=== PATIENT | male | born 1970 | race Caucasian/White ===

== ENCOUNTER 2024-06-13 07:32 | Emergency (ER) | payer MEDICAID ==
[~2024-06-13] VITALS: Ht 170.2 cm; Wt 60.7 kg
--- NOTE | 2024-06-13 07:53 | ED.PDOC ---
Musculoskeletal HPI Comments A 53 YEAR OLD MALE PRESENTS TO THE ED WITH CHIEF COMPLAINT OF LEFT HIP PAIN. PATIENT REPORTS THAT HE HAD RECENT LEFT HIP SURGERY IN 2023, HOWEVER, HE HAD ACCIDENTALLY FELL YESTERDAY ONTO HIS LEFT SIDE, CAUSING IMMENSE PAIN TO THE LEFT HIP AND LEG. PATIENT RELAYS THAT HIS PAIN OCCURS EVEN WHEN HIS LEG IS SLIGHTLY PALPATED. PATIENT STATES HE IS STILL ABLE TO WALK ON HIS OWN. PATIENT DENIES ANY NUMBNESS, WEAKNESS, HEAD INJURY, BACK INJURY, NECK INJURY, OR LOC. NO OTHER SYMPTOMS REPORTED AT THIS TIME OF CARE. Chief Complaint: Lower Extremity Time Seen by MD: 07:49 Reviewed Notes: Nurses Notes, Medications, Allergies Allergies: Coded Allergies: NO KNOWN ALLERGIES (Unverified , 06/13/24) Home Meds Active Scripts Gabapentin (Gabapentin) 300 Mg Cap, 1 CAP PO BID, #40 CAP Prov:JAVI RAMON 06/13/24 Ibuprofen (Ibuprofen) 800 Mg Tab, 1 TAB PO TID, #30 TAB Prov:JAVI RAMON 06/13/24 Information Source: Patient Mode of Arrival: Ambulatory Location: Left Extremity Location: Hip, Leg Timing: Days Prehospital treatment: None Severity: Moderate Able to Move Extremity: Yes Bear Weight: Fully Pain: Moderate Mechanism: Blunt Trauma Circumstances: Fall Onset of Symptoms: After Trauma Symptoms: Pain DVT Risk Factors: Recent surgery History of: Hip Fracture, Hip Operation Associated signs and symptoms: Hip pain Past Medical History PAST MEDICAL HISTORY: Denies Surgical History (Other): LEFT HIP SURGERY Family History Family History: Reviewed,noncontributory to illness Social History Smoker: Non-Smoker Alcohol: Denies ETOH Use Drugs: Denies Drug Use Lives In: Home Constitutional: denies: chills, diaphoresis, fatigue, fever, malaise, sweats, weakness, others EENTM: denies: blurred vision, double vision, ear bleeding, ear discharge, ear drainage, ear pain, ear ringing, eye pain, eye redness, hearing loss, mouth pain, mouth swelling, nasal discharge, nose bleeding, nose congestion, nose pain, photophobia, tearing, throat pain, throat swelling, voice changes, others Respiratory: denies: cough, hemoptysis, orthopnea, SOB at rest, shortness of breath, SOB with excertion, stridor, wheezing, others Cardiovascular: denies: chest pain, dizzy spells, diaphoresis, Dyspnea on exertion, edema, irregular heart beat, left arm pain, lightheadedness, palpitations, PND, syncope, others Gastrointestinal: denies: abdomen distended, abdominal pain, blood streaked bowels, constipated, diarrhea, dysphagia, difficulty swallowing, hematemesis, melena, nausea, poor appetite, poor fluid intake, rectal bleeding, rectal pain, vomiting, others Genitourinary: denies: burning, dysuria, flank pain, frequency, hematuria, incontinence, penile discharge, penile sore, pain, testicle pain, testicle swelling, urgency, others Neurological: denies: dizziness, fainting, headache, left sided numbness, left sided weakness, numbness, paresthesia, pre-existing deficit, right sided numbness, right sided weakness, seizure, speech problems, tingling, tremors, weakness, others Musculoskeletal: reports: joint pain, muscle pain; denies: back pain, gout, joint swelling, muscle stiffness, neck pain, others Integumetry: denies: bruises, change in color, change in hair/nails, dryness, laceration, lesions, lumps, rash, wounds, others Allergic/Immunocompromised: denies: Difficulty Healing, Frequent Infections, Hives, Itching, others Hematologic/Lymphatic: denies: anemia, blood clots, easy bleeding, easy bruising, swollen glands, others Endocrine: denies: excessive hunger, excessive sweating, excessive thirst, excessive urination, flushing, intolerance to cold, intolerance to heat, unexplained weight gain, unexplained weight loss, others Psychiatric: denies: anxiety, bipolar disorder, depression, hopeless, panic disorder, schizophrenia, sleepless, suicidal, others All Other Systems: Reviewed and Negative Physical Exam General Appearance: No Apparent Distress, Normal HEENT: Normal ENT Inspection, PERRL/EOMI Neck: Full Range of Motion, Non-Tender, Normal, Normal Inspection Respiratory: Chest Non-Tender, Lungs Clear, No Accessory Muscle Use, No Respiratory Distress, Normal Breath Sounds Cardiovascular: No Edema, No JVD, No Murmur, No Gallop, Normal Peripheral Pulses, Regular Rate/Rhythm Breast Exam: Deferred Gastrointestinal: No Organomegaly, Non Tender, No Pulsatile Mass, Normal Bowel Sounds, Soft Genitalia: Deferred Pelvic: Deferred Rectal: Deferred Extremities: Decreased range of motion (SLIGHTLY), No calf tenderness, Normal capillary refill, Normal inspection, No pedal edema, Tender (LEFT LATERAL HIP, NO BONY TENDERNESS, SWELLING AND DEFORMITY. ) Musculoskeletal : Apperance: Normal Neurologic: Alert, report analyst II-XII nml as Tested, No Motor Deficits, Normal Affect, Normal Mood, No Sensory Deficits Cerebellar Function: Normal Reflexes: Normal Skin: Dry, Normal Color, Warm Peripheral Pulses: 2+ carotid (R), 2+ carotid (L), 2+ dorsalis pedis (R), 2+ dorsalis pedis (L) Lymphatic: No Adenopathy Was a procedure done? Was a procedure done?: No Differential Diagnosis EXT Differential Diagnosis: Fracture, Sprain, Dislocation, DJD, Strain, Arthritis, Bursitis X-Ray, Labs, Meds, VS Vital Signs Date Time Temp Pulse Resp B/P (MAP) Pulse Ox O2 Delivery O2 Flow Rate FiO2 06/13/24 08:09 98.8 91 18 125/69 (87) 100 98.8 06/13/24 08:09 91 18 100 Room Air 06/13/24 07:44 98.8 91 18 125/69 (87) 100 PATIENT: RICARDO RUBALCAVANACCT: [id number]: [id number] : 1970 LOC: ER ROOM / BED: / AGE / SEX: 53 / M ADM STATUS: REG ER SERVICE ORDERING PHYSICIAN: JAVI RAMON PROCEDURE(s): LHIP - L HIP COMPLETE XRAY REASON: FALL X 2 DAYS AGO, HX OF LEFT HIP SURGERY IN THE PAST ORDER NUMBER(s): [id number], ACCESSION NUMBER(s): [id number] CLINICAL INDICATION: FALL X 2 DAYS AGO, HX OF LEFT HIP SURGERY IN THE PAST TECHNIQUE: 3 XY L HIP COMPLETE XRAY Comparison: None FINDINGS/IMPRESSION: : There is no evidence of acute fracture or dislocation. Plate and screw fixation of the left iliac wing, left sacroiliac joint and left superior and inferior pubic ramus. Moderate degenerative changes of bilateral hips. ATED BY: BRETT RUCKER MD DICTATED DATE/TIME: 06/13/24 0816 SIGNED BY: BRETT RUCKER MD SIGNED DATE/TIME: 06/13/24 0816 CC: X-Ray, Labs, Meds, VS Comment I reviewed the following notes from patient's past medical encounters: None The following tests were ordered, and results were reviewed by me: LEFT HIP XR Additional Information was gathered from interviewing the following independent historians: None I reviewed and agreed with the following test results read by other providers: LEFT HIP XR I discussed treatment and results with medical personnel. LEFT HIP XR: INTERPRETED BY ME. NO ACUTE FINDINGS. NO FRACTURES OR DISLOCATION. HARDWARE NOTED IN LEFT HIP. PENDING RADIOLOGIST REPORT. Images Reviewed?: Images reviewed and evaluated by me Time of 1ST Reevaluation: 08:40 Reevaluation 1ST: Improved Patient Education/Counseling: Diagnosis, Treatment, Need For Follow Up Family Education/Counseling: Diagnosis, Treatment, No Family Present Medical Screening: No EMC Exist At This Time Departure 1 Departure Time of Disposition: 08:40 Impression: Primary Impression: Strain of left hip and thigh Qualified Codes: S76.012A - Strain of muscle, fascia and tendon of left hip, initial encounter; S76.912A - Strain of unspecified muscles, fascia and tendons at thigh level, left thigh, initial encounter Additional Impression: Degenerative joint disease of both hips Qualified Codes: M16.0 - Bilateral primary osteoarthritis of hip Disposition: 01 HOME / SELF CARE / HOMELESS Condition: Stable Additional Instructions: FOLLOW UP WITH PCP WITHIN 2-3 DAYS. e-Prescriptions Gabapentin (Gabapentin) 300 Mg Cap 1 CAP PO BID, #40 CAP Prov: JAVI RAMON 06/13/24 Ibuprofen (Ibuprofen) 800 Mg Tab 1 TAB PO TID, #30 TAB Prov: JAVI RAMON 06/13/24 Discharged With: Self Critical Care Note Critical Care Time?: No Stability Stability form required: No Heart Score Heart Score: Heart Score Response (Comments) Value History N/A 0 EKG N/A 0 Age N/A 0 Risk Factors N/A 0 Troponin N/A 0 Total 0 I personally scribed for JAVI RAMON ([email or web address]) on 06/13/24 at 07:53. Electronically submitted by Dez Eric ([email or web address]). I personally scribed for JAVI RAMON ([email or web address]) on 06/13/24 at 07:59. Electronically submitted by Dez Eric ([email or web address]). I personally scribed for JAVI RAMON ([email or web address]) on 06/13/24 at 08:14. Electronically submitted by Dez Eric ([email or web address]). JAVI RAMON Jun 13, 2024 07:53
[2024-06-13 08:09] VITALS: BP 125/69; PULSE 91; RESP 18; TEMP 98.8; O2SAT 100
--- NOTE | 2024-06-13 08:19 | DVH ---
CLINICAL INDICATION: FALL X 2 DAYS AGO, HX OF LEFT HIP SURGERY IN THE PAST TECHNIQUE: 3 XY L HIP COMPLETE XRAY Comparison: None FINDINGS/IMPRESSION: : There is no evidence of acute fracture or dislocation. Plate and screw fixation of the left iliac wing, left sacroiliac joint and left superior and inferior pubic ramus. Moderate degenerative changes of bilateral hips.
[2024-06-13] MEDS ORDERED: GABA-1250 PO (08:24)
[2024-06-13] MEDS ORDERED: IBUP-1456 PO (08:24)
[2024-06-13] MEDS: KETOROLAC TROMETH 60MG/2ML VIAL IM ONE (08:28)
== END 2024-06-13 08:33 | disposition home or self-care (01) ==
LOC: ER 07:32
DX: S76.012A Strain of muscle, fascia and tendon of left hip, initial encounter (principal); S76.912A Strain of unspecified muscles, fascia and tendons at thigh level, left thigh, initial encounter; M16.0 Bilateral primary osteoarthritis of hip; Z98.890 Other specified postprocedural states; Z79.1 Long term (current) use of non-steroidal anti-inflammatories (NSAID); Z79.899 Other long term (current) drug therapy; W18.39XA Other fall on same level, initial encounter; Y93.89 Activity, other specified; Y92.89 Other specified places as the place of occurrence of the external cause; Y99.8 Other external cause status
CPT/HCPCS: 73502; 96372; 99283; J1885